=== PATIENT | female | born 2000 | race Hispanic/Latino ===

== ENCOUNTER 2018-03-08 16:30 | Emergency (ER) | payer MEDICAID ==
[~2018-03-08 16:30] MED LIST: CEPH-578 PO; METR500T PO; PREN-61 PO
== END 2018-03-08 18:48 | disposition home or self-care (01) ==
LOC: EDH 16:30
DX: O20.0 Threatened abortion (principal); Z79.899 Other long term (current) drug therapy; Z98.890 Other specified postprocedural states; Z3A.12 12 weeks gestation of pregnancy
CPT/HCPCS: 36415; 76801; 84702; 86900; 86901

== ENCOUNTER 2018-08-07 20:23 | Observation (INO) | payer MEDICAID ==
[~2018-08-07] VITALS: Ht 154.9 cm; Wt 54.9 kg
[2018-08-07 21:31] LABS: APPEARANCE,URINE SLIGHTLY CLOUDY (CLEAR); BILIRUBIN,URINE Negative (NEGATIVE); COLOR,URINE Yellow (YELLOW); GLUCOSE, URINE (UA) Negative (NEGATIVE); KETONES,URINE >=160 mg/dL (NEGATIVE); LEUKOCYTE ESTERASE ,URINE Negative (NEGATIVE); NITRATE,URINE Negative (NEGATIVE); OCCULT BLOOD,URINE Negative (NEGATIVE); PH,URINE 5.5 (5.0-8.0); PROTEIN,URINE Negative (NEGATIVE); UROBILINOGEN,URINE 0.2 mg/dL (0.2-1.0)
[2018-08-07 21:34] LABS: RBC,URINE 0-1 /HPF (0-1); WBC,URINE 0-1 /HPF (0-1)
[2018-08-07 21:35] LABS: BACTERIA,URINE Few /HPF (None Seen); MUCUS,URINE Rare LPF (None Seen); SQUAMOUS EPITHELIAL CELL,UR Moderate /HPF (0-2)
[2018-08-07] MEDS ORDERED: LACTATED RINGERS 1000ML 1,000 ML IV SCH ×2 (22:00→22:15)
[2018-08-07] MEDS ORDERED: LACTATED RINGERS 1000ML IV SCH (22:00)
[2018-08-07] MEDS ORDERED: ONDANSETRON HCL MDV 20ML 2 MG/ML VIAL IVP SCH (22:00)
[2018-08-07] MEDS ORDERED: ONDANSETRON HCL 4 MG/2 ML VIAL ONE (22:15)
== END 2018-08-08 02:50 | disposition home or self-care (01) ==
LOC: EDH 20:23 → LDH 20:24
PROVIDERS: ADMIT Obstetrics & Gynecology; ATTEND Obstetrics & Gynecology
DX: O21.2 Late vomiting of pregnancy (principal); O26.893 Other specified pregnancy related conditions, third trimester; R19.7 Diarrhea, unspecified; R10.30 Lower abdominal pain, unspecified; Z3A.33 33 weeks gestation of pregnancy
CPT/HCPCS: 81001; 96360; 96361 ×2; 99284; G0378 ×6; J2405; J7120 ×2

== ENCOUNTER 2019-04-15 20:27 | Emergency (ER) | payer MEDICAID, OTHER ==
[~2019-04-15 20:27] MED LIST changes: -CEPH-578 PO; -METR500T PO
[2019-04-15] MEDS ORDERED: ACETAMINOPHEN 325 MG TAB ONE (20:48)
== END 2019-04-15 21:49 | disposition home or self-care (01) ==
LOC: EDH 20:27
DX: S00.83XA Contusion of other part of head, initial encounter (principal); Z98.890 Other specified postprocedural states; W18.30XA Fall on same level, unspecified, initial encounter; Y93.89 Activity, other specified; Y92.89 Other specified places as the place of occurrence of the external cause; Y99.8 Other external cause status
CPT/HCPCS: 70260; 81025

== ENCOUNTER 2020-10-05 14:34 | Emergency (ER) | payer OTHER ==
[2020-10-05 14:56] LABS: APPEARANCE,URINE Clear (CLEAR); BILIRUBIN,URINE Negative (NEGATIVE); COLOR,URINE Yellow (YELLOW); GLUCOSE, URINE (UA) Negative (NEGATIVE); KETONES,URINE Negative (NEGATIVE); LEUKOCYTE ESTERASE ,URINE Large (NEGATIVE); NITRATE,URINE Negative (NEGATIVE); OCCULT BLOOD,URINE Moderate (NEGATIVE); PH,URINE 6.5 (5.0-8.0); PROTEIN,URINE Negative (NEGATIVE); UROBILINOGEN,URINE 0.2 mg/dL (0.2-1.0)
[2020-10-05 15:03] LABS: HCG,QUAL RESULT NEGATIVE (NEGATIVE)
[2020-10-05 15:04] LABS: BACTERIA,URINE Rare /HPF (None Seen); RBC,URINE 0-1 /HPF (0-1); WBC,URINE 26-50 /HPF (0-1)
[2020-10-05 15:05] LABS: SQUAMOUS EPITHELIAL CELL,UR Few /HPF (0-2)
[2020-10-05] MEDS ORDERED: LIDOCAINE HCL-MPF 1% 2ML VIAL ONE (15:18)
[2020-10-05] MEDS ORDERED: PHENAZOPYRIDINE HCL 200 MG TABLET ONE (15:19)
[2020-10-05] MEDS ORDERED: CEFTRIAXONE SODIUM 1 GM ONE (15:19)
== END 2020-10-05 15:49 | disposition home or self-care (01) ==
LOC: EDH 14:34
DX: N30.00 Acute cystitis without hematuria (principal)
CPT/HCPCS: 81001; 81025; 87077; 87088; 87186; 87486; 87797; 96372; 99283; J0696; J3490

== ENCOUNTER 2022-09-07 11:14 | Emergency (ER) | payer MEDICAID ==
[~2022-09-07] VITALS: Ht 154.9 cm; Wt 54.4 kg
[2022-09-07 11:18] VITALS: BP 99/60
[2022-09-07 11:38] LABS: HCG,QUALITATIVE URINE NEGATIVE (NEGATIVE)
[2022-09-07 11:39] LABS: BILIRUBIN,URINE NEGATIVE (NEGATIVE); COLOR,URINE YELLOW (YELLOW); GLUCOSE, URINE (UA) NEGATIVE (NEGATIVE); KETONES,URINE NEGATIVE (NEGATIVE); LEUKOCYTE ESTERASE ,URINE NEGATIVE Leu/uL (NEGATIVE); NITRATE,URINE NEGATIVE (NEGATIVE); OCCULT BLOOD,URINE NEGATIVE (NEGATIVE); PH,URINE 6.5 (5.0-8.0); PROTEIN,URINE 10 mg/dL (NEGATIVE); UROBILINOGEN,URINE 0.2 mg/dL (0.2-1.0)
[2022-09-07 11:42] LABS: APPEARANCE,URINE SLIGHTLY CLOUDY (CLEAR)
[2022-09-07] MEDS ORDERED: KETOROLAC 15MG/ML VIAL (15MG/ML) IV ONE (12:30)
[2022-09-07] MEDS ORDERED: 0.9% NACL 500ML IV.SOLN 500 ML IV ONE (12:30)
[2022-09-07 12:59] LABS: BASOPHILS % (AUTO) 0.4 % (0.0-5.0); EOSINOPHILS % (AUTO) 1.4 % (0.0-8.0); LYMPHOCYTES % (AUTO) 33.9 % (21.0-51.0); MEAN CORPUSCULAR HGB CONC 32.3 g/dL (32.0-36.0); MEAN CORPUSCULAR VOLUME 92.7 fL (79-99); NEUTROPHILS % (AUTO) 54.9 % (40.0-77.0); PLATELET COUNT (AUTO) 273 K/uL (130-400); RED BLOOD CELL COUNT(AUTO) 4.64 MIL/uL (4.00-5.50); RED CELL DISTRIBUTION WIDTH 12.8 % (11.0-15.5)
[2022-09-07 13:10] LABS: CREATININE 0.7 mg/dL (0.5-1.5)
[2022-09-07 13:16] LABS: ALBUMIN 3.9 g/dL (3.5-5.0); TOTAL PROTEIN, SERUM 7.6 g/dL (6.0-8.3)
[2022-09-07] MEDS ORDERED: CYCL5TAB PO (13:16)
[2022-09-07] MEDS ORDERED: IBUP100O27 PO (13:16)
== END 2022-09-07 13:30 | disposition home or self-care (01) ==
LOC: EDH 11:14
DX: M54.50 Low back pain, unspecified (principal); Z98.890 Other specified postprocedural states; Z79.899 Other long term (current) drug therapy
CPT/HCPCS: 99285; 74176; 96374; 96361; 80053; 85025; 81003; 81025; 36415; J7040; J1885

== ENCOUNTER 2022-10-05 00:36 | Emergency (ER) | payer MEDICAID ==
[~2022-10-05] VITALS: Ht 154.9 cm; Wt 58.1 kg
[~2022-10-05 00:36] MED LIST changes: +CYCL5TAB PO; +IBUP100O27 PO
[2022-10-05 00:40] VITALS: BP 98/56
[2022-10-05 01:20] LABS: APPEARANCE,URINE CLEAR (CLEAR); BILIRUBIN,URINE NEGATIVE (NEGATIVE); COLOR,URINE LIGHT-YELLOW (YELLOW); GLUCOSE, URINE (UA) NEGATIVE (NEGATIVE); KETONES,URINE NEGATIVE (NEGATIVE); LEUKOCYTE ESTERASE ,URINE 250 Leu/uL (NEGATIVE); NITRATE,URINE NEGATIVE (NEGATIVE); OCCULT BLOOD,URINE SMALL (NEGATIVE); PROTEIN,URINE 10 mg/dL (NEGATIVE); UROBILINOGEN,URINE 0.2 mg/dL (0.2-1.0)
[2022-10-05 01:27] LABS: BACTERIA,URINE RARE /HPF (None Seen); MUCUS,URINE MOD LPF (None Seen); SQUAMOUS EPITHELIAL CELL,UR MOD /HPF (0-2); WBC,URINE 26-50 /HPF (0-1)
[2022-10-05] MEDS ORDERED: SULFAMETHOX-TMP DS 800/160 TAB PO STA (02:24)
[2022-10-05] MEDS ORDERED: SULF1TAB42 PO (02:24)
[2022-10-05] MEDS ORDERED: IBUP-2076 PO (02:24)
[2022-10-05] MEDS ORDERED: PHENAZOPYRIDINE HCL 200 MG TABLET ONE (03:03)
[2022-10-05] MEDS ORDERED: PHENAZOPYRIDINE HCL 200 MG TABLET PO STA (03:06)
== END 2022-10-05 03:34 | disposition home or self-care (01) ==
LOC: EDH 00:36
DX: N39.0 Urinary tract infection, site not specified (principal); Z79.1 Long term (current) use of non-steroidal anti-inflammatories (NSAID)
CPT/HCPCS: 81001; 87088

== ENCOUNTER 2022-12-15 16:54 | Emergency (ER) | payer MEDICAID ==
[~2022-12-15] VITALS: Ht 154.9 cm; Wt 61.2 kg
[~2022-12-15 16:54] MED LIST changes: +IBUP-2076 PO; +SULF1TAB42 PO
[2022-12-15 17:20] VITALS: BP 112/67
[2022-12-15 17:41] LABS: APPEARANCE,URINE CLEAR (CLEAR); BILIRUBIN,URINE NEGATIVE (NEGATIVE); COLOR,URINE DARK-YELLOW (YELLOW); GLUCOSE, URINE (UA) NEGATIVE (NEGATIVE); KETONES,URINE NEGATIVE (NEGATIVE); LEUKOCYTE ESTERASE ,URINE 250 Leu/uL (NEGATIVE); NITRATE,URINE NEGATIVE (NEGATIVE); PH,URINE 5.5 (5.0-8.0); PROTEIN,URINE NEGATIVE (NEGATIVE); UROBILINOGEN,URINE 0.2 mg/dL (0.2-1.0)
[2022-12-15 17:47] LABS: BACTERIA,URINE RARE /HPF (None Seen); MUCUS,URINE RARE LPF (None Seen); SQUAMOUS EPITHELIAL CELL,UR RARE /HPF (0-2)
[2022-12-15 17:48] LABS: HCG,QUALITATIVE URINE NEGATIVE (NEGATIVE)
[2022-12-15] MEDS ORDERED: CEFD300C3 PO (18:20)
[2022-12-15] MEDS ORDERED: ONDA4TAB10 PO (18:20)
[2022-12-15] MEDS ORDERED: IBUP-2070 PO (18:20)
[2022-12-15] MEDS ORDERED: PHEN-847 PO (18:20)
[2022-12-15] MEDS ORDERED: IBUPROFEN 600 MG TABLET PO ONE (18:30)
[2022-12-15] MEDS ORDERED: ONDANSETRON ODT 4MG TAB SL ONE (18:30)
[2022-12-15] MEDS ORDERED: HYDROCODONE/ACETAMINOPHEN 5/325 MG TAB PO ONE (18:30)
[2022-12-15] MEDS ORDERED: CEFTRIAXONE 1G VIAL IM ONE (18:30)
== END 2022-12-15 18:35 | disposition home or self-care (01) ==
LOC: EDH 16:54
DX: N39.0 Urinary tract infection, site not specified (principal)
CPT/HCPCS: 99284; 87088; 81001; 81025; 96372; J0696

== ENCOUNTER 2023-06-03 12:43 | Emergency (ER) | payer MEDICAID ==
[~2023-06-03] VITALS: Ht 154.9 cm; Wt 59.0 kg
[~2023-06-03 12:43] MED LIST changes: +CEFD300C3 PO; +IBUP-2070 PO; +ONDA4TAB10 PO; +PHEN-847 PO
[2023-06-03 13:23] LABS: APPEARANCE,URINE CLEAR (CLEAR); BILIRUBIN,URINE NEGATIVE (NEGATIVE); COLOR,URINE COLORLESS (YELLOW); GLUCOSE, URINE (UA) NEGATIVE (NEGATIVE); KETONES,URINE NEGATIVE (NEGATIVE); LEUKOCYTE ESTERASE ,URINE NEGATIVE Leu/uL (NEGATIVE); NITRATE,URINE NEGATIVE (NEGATIVE); PH,URINE 5.5 (5.0-8.0); PROTEIN,URINE NEGATIVE (NEGATIVE); UROBILINOGEN,URINE 0.2 mg/dL (0.2-1.0)
[2023-06-03 13:24] LABS: ADD UA MICROSCOPIC YES
[2023-06-03 13:30] LABS: BACTERIA,URINE RARE /HPF (None Seen); MUCUS,URINE RARE LPF (None Seen); RBC,URINE 0-1 /HPF (0-1); SQUAMOUS EPITHELIAL CELL,UR MOD /HPF (0-2); WBC,URINE 0-1 /HPF (0-1)
[2023-06-03 14:34] LABS: HEMATOCRIT 40.7 % (36-48); MEAN CORPUSCULAR HEMOGLOBIN 31.1 pg (27.0-33.0); MEAN CORPUSCULAR HGB CONC 33.4 g/dL (32.0-36.0); MEAN CORPUSCULAR VOLUME 92.9 fL (79-99); RED BLOOD CELL COUNT(AUTO) 4.38 MIL/uL (4.00-5.50); RED CELL DISTRIBUTION WIDTH 12.5 % (11.0-15.5); WHITE BLOOD COUNT (AUTO) 7.6 K/uL (4.8-10.8)
[2023-06-03 14:41] LABS: CREATININE 0.9 mg/dL (0.5-1.5); POTASSIUM 4.1 mmol/L (3.5-5.1)
[2023-06-03 14:46] LABS: ALBUMIN 3.8 g/dL (3.5-5.0); BILIRUBIN,TOTAL 0.4 mg/dL (0.2-1.0); TOTAL PROTEIN, SERUM 7.5 g/dL (6.0-8.3)
[2023-06-03] MEDS ORDERED: IBUPROFEN 600 MG TABLET PO ONE (17:00)
[2023-06-03] MEDS ORDERED: IBUP-2070 PO (17:43)
[2023-06-03] MEDS ORDERED: PHEN-847 PO (17:43)
[2023-06-03 17:49] VITALS: BP 115/52; PULSE 78; RESP 14; O2SAT 97
== END 2023-06-03 17:53 | disposition home or self-care (01) ==
LOC: EDH 12:43
DX: M54.50 Low back pain, unspecified (principal); R30.0 Dysuria
CPT/HCPCS: 36415; 74176; 80053; 81001; 81025; 85027

== ENCOUNTER 2023-10-06 08:02 | Emergency (ER) | payer MEDICAID, OTHER ==
[~2023-10-06] VITALS: Ht 154.9 cm; Wt 54.4 kg
[2023-10-06 08:39] LABS: APPEARANCE,URINE CLOUDY (CLEAR); BILIRUBIN,URINE NEGATIVE (NEGATIVE); COLOR,URINE YELLOW (YELLOW); GLUCOSE, URINE (UA) NEGATIVE (NEGATIVE); KETONES,URINE NEGATIVE (NEGATIVE); LEUKOCYTE ESTERASE ,URINE NEGATIVE Leu/uL (NEGATIVE); NITRATE,URINE NEGATIVE (NEGATIVE); OCCULT BLOOD,URINE MODERATE (NEGATIVE); PROTEIN,URINE 30 mg/dL (NEGATIVE)
[2023-10-06 08:42] LABS: ADD UA MICROSCOPIC YES
[2023-10-06 08:43] LABS: MUCUS,URINE MANY LPF (None Seen); SQUAMOUS EPITHELIAL CELL,UR MOD /HPF (0-2)
[2023-10-06] MEDS: 0.9%NACL 1000ML 1,000 ML IV ONE (10:08)
[2023-10-06] MEDS: ACETAMINOPHEN 500 MG TABLET PO ONE (10:08)
[2023-10-06] MEDS: KETOROLAC 30MG VIAL (30MG/ML) IVP ONE (10:09)
[2023-10-06 10:28] LABS: BASOPHILS # (AUTO) 0.01 K/uL (0.00-0.20); BASOPHILS % (AUTO) 0.2 % (0.0-5.0); HEMATOCRIT 33.3 % (36-48); IMMATURE GRANULOCYTE ABSOLUTE 0.02 K/uL (0-1); LYMPHOCYTES # (AUTO) 1.2 K/uL (1.0-4.8); LYMPHOCYTES % (AUTO) 27.9 % (21.0-51.0); MEAN CORPUSCULAR HEMOGLOBIN 31.3 pg (27.0-33.0); MEAN CORPUSCULAR HGB CONC 34.5 g/dL (32.0-36.0); MEAN CORPUSCULAR VOLUME 90.5 fL (79-99); MONOCYTES # (AUTO) 0.5 K/uL (0.1-1.0); MONOCYTES % (AUTO) 11.5 % (3.0-13.0); NEUTROPHILS # (AUTO) 2.5 K/uL (1.8-7.7); NEUTROPHILS % (AUTO) 59.9 % (40.0-77.0); PLATELET COUNT (AUTO) 154 K/uL (130-400); RED BLOOD CELL COUNT(AUTO) 3.68 MIL/uL (4.00-5.50); RED CELL DISTRIBUTION WIDTH 12.6 % (11.0-15.5); WHITE BLOOD COUNT (AUTO) 4.2 K/uL (4.8-10.8)
[2023-10-06 10:38] LABS: CREATININE 0.8 mg/dL (0.5-1.0); POTASSIUM 3.4 mmol/L (3.5-5.1)
[2023-10-06 10:42] LABS: ALBUMIN 2.9 g/dL (3.5-5.0); BILIRUBIN,TOTAL 0.1 mg/dL (0.2-1.0); TOTAL PROTEIN, SERUM 6.8 g/dL (6.0-8.3)
[2023-10-06 12:02] LABS: BAND NEUTROPHILS % (MANUAL) 11 % (0-2); LYMPHOCYTES % (MANUAL) 21 % (22-44); MAN.DIFF COMMENT-IMPRESSION MANUAL DIFFERENTIAL; MONOCYTES % (MANUAL) 15 % (2-9); PLATELET MORPHOLOGY COMMENT ADEQUATE; SEGMENTED NEUTROPHILS % 53 % (40-70); TOTAL CELLS COUNTED 100
[2023-10-06] MEDS ORDERED: IBUP-2070 PO (12:05)
[2023-10-06 12:25] VITALS: BP 105/62; PULSE 90; RESP 16; O2SAT 99
== END 2023-10-06 12:53 | disposition home or self-care (01) ==
LOC: EDH 08:02
DX: J02.9 Acute pharyngitis, unspecified (principal); N30.01 Acute cystitis with hematuria; R50.9 Fever, unspecified
CPT/HCPCS: 99285; 74176; 96374; 96361; 87426; 80053; 83690; 85025; 87880; 81001; 81025; 36415; J7030; J1885

== ENCOUNTER 2024-11-09 15:31 | Emergency (ER) | payer OTHER, MEDICAID ==
[~2024-11-09] VITALS: Ht 154.9 cm; Wt 54.4 kg
[~2024-11-09 15:31] MED LIST changes: -CYCL5TAB PO; +CYCL5TAB3 PO; +ONDA-243 PO; -ONDA4TAB10 PO
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
[2024-11-09] MEDS: dilTIAZem 25MG INJ IVP ONE (16:59)
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
[2024-11-09 17:16] LABS: APPEARANCE,URINE CLOUDY (CLEAR); BILIRUBIN,URINE NEGATIVE (NEGATIVE); COLOR,URINE YELLOW (YELLOW); GLUCOSE, URINE (UA) NEGATIVE (NEGATIVE); KETONES,URINE NEGATIVE (NEGATIVE); LEUKOCYTE ESTERASE ,URINE NEGATIVE Leu/uL (NEGATIVE); NITRATE,URINE NEGATIVE (NEGATIVE); OCCULT BLOOD,URINE LARGE (NEGATIVE); PH,URINE 5.5 (5.0-8.0); PROTEIN,URINE 10 mg/dL (NEGATIVE); UROBILINOGEN,URINE 0.2 mg/dL (0.2-1.0)
[2024-11-09 17:20] LABS: ADD UA MICROSCOPIC YES
[2024-11-09 17:21] LABS: MUCUS,URINE MANY LPF (None Seen); RBC,URINE 26-50 /HPF (0-1); SQUAMOUS EPITHELIAL CELL,UR MOD /HPF (0-2)
[2024-11-09] MEDS: acetaMINOPHEN 1,000 MG/100 ML VIAL IVPB ONE (17:27)
[2024-11-09] MEDS ORDERED: acetaMINOPHEN 500 MG TABLET PO ONE (17:30)
--- NOTE | 2024-11-09 17:30 | NUR ---
PT DECLINED MEDICATIONS.SHE WANTS TO GO HOME TO REST.
[2024-11-09 17:55] VITALS: BP 99/66; PULSE 76; RESP 18; TEMP 98; O2SAT 98
== END 2024-11-09 18:01 | disposition home or self-care (01) ==
LOC: EDH 15:31
DX: O26.891 Other specified pregnancy related conditions, first trimester (principal); R31.9 Hematuria, unspecified; R10.9 Unspecified abdominal pain; M54.9 Dorsalgia, unspecified; R10.2 Pelvic and perineal pain; Z3A.11 11 weeks gestation of pregnancy; Z79.899 Other long term (current) drug therapy; Z98.890 Other specified postprocedural states; V49.9XXA Car occupant (driver) (passenger) injured in unspecified traffic accident, initial encounter; Y93.89 Activity, other specified; Y92.488 Other paved roadways as the place of occurrence of the external cause; Y99.8 Other external cause status
CPT/HCPCS: 36415; 76801; 81001; 84702; 99284; J3490